=== PATIENT | male | born 1940 | race Caucasian/White ===

== ENCOUNTER 2016-02-09 09:12 | Outpatient (CLI) | payer MEDICARE | END 2016-02-09 09:13 | disposition home or self-care (01) | DX: I48.0 Paroxysmal atrial fibrillation (principal) ==

== ENCOUNTER 2016-03-01 13:38 | Outpatient (CLI) | payer MEDICARE | END 2016-03-01 13:39 | disposition home or self-care (01) | DX: I48.0 Paroxysmal atrial fibrillation (principal) ==

== ENCOUNTER 2016-03-09 11:00 | Outpatient (CLI) | payer MEDICARE | END 2016-03-09 11:01 | disposition home or self-care (01) | DX: I48.0 Paroxysmal atrial fibrillation (principal) ==

== ENCOUNTER 2016-03-29 10:53 | Outpatient (CLI) | payer MEDICARE | END 2016-03-29 10:54 | disposition home or self-care (01) | DX: I48.0 Paroxysmal atrial fibrillation (principal) ==

== ENCOUNTER 2016-04-21 13:14 | Outpatient (CLI) | payer MEDICARE | END 2016-04-21 13:15 | disposition home or self-care (01) | DX: I48.0 Paroxysmal atrial fibrillation (principal) ==

== ENCOUNTER 2016-05-03 11:28 | Outpatient (CLI) | payer MEDICARE | END 2016-05-03 11:29 | DX: I48.0 Paroxysmal atrial fibrillation (principal) ==

== ENCOUNTER 2016-05-24 13:24 | Outpatient (CLI) | payer MEDICARE | END 2016-05-24 13:25 | disposition home or self-care (01) | DX: I48.0 Paroxysmal atrial fibrillation (principal) ==

== ENCOUNTER 2016-06-21 13:30 | Outpatient (CLI) | payer MEDICARE | END 2016-06-21 13:31 | disposition home or self-care (01) | DX: I48.0 Paroxysmal atrial fibrillation (principal) ==

== ENCOUNTER 2016-07-12 10:58 | Outpatient (CLI) | payer MEDICARE | END 2016-07-12 10:59 | disposition home or self-care (01) | LOC: LAB.F 10:58 | PROVIDERS: ATTEND Internal Medicine Cardiovascular Disease | DX: I48.0 Paroxysmal atrial fibrillation (principal) | CPT/HCPCS: 85610 ==

== ENCOUNTER 2016-08-09 13:40 | Outpatient (CLI) | payer MEDICARE | END 2016-08-09 13:41 | disposition home or self-care (01) | LOC: LAB.F 13:40 | PROVIDERS: ATTEND Internal Medicine Cardiovascular Disease | DX: I48.0 Paroxysmal atrial fibrillation (principal) | CPT/HCPCS: 85610 ==

== ENCOUNTER 2016-08-23 10:49 | Outpatient (CLI) | payer MEDICARE | END 2016-08-23 10:50 | disposition home or self-care (01) | LOC: LAB.F 10:49 | PROVIDERS: ATTEND Internal Medicine Cardiovascular Disease | DX: I48.0 Paroxysmal atrial fibrillation (principal) | CPT/HCPCS: 85610 ==

== ENCOUNTER 2016-09-13 11:21 | Outpatient (CLI) | payer MEDICARE | END 2016-09-13 11:22 | disposition home or self-care (01) | LOC: LAB.F 11:21 | PROVIDERS: ATTEND Internal Medicine Cardiovascular Disease | DX: I48.0 Paroxysmal atrial fibrillation (principal) | CPT/HCPCS: 85610 ==

== ENCOUNTER 2016-09-20 14:06 | Outpatient (CLI) | payer MEDICARE | END 2016-09-20 14:07 | disposition home or self-care (01) | LOC: LAB.F 14:06 | PROVIDERS: ATTEND Internal Medicine Cardiovascular Disease | DX: I48.0 Paroxysmal atrial fibrillation (principal) | CPT/HCPCS: 85610 ==

== ENCOUNTER 2016-09-27 13:02 | Outpatient (CLI) | payer MEDICARE | END 2016-09-27 13:03 | disposition home or self-care (01) | LOC: LAB.F 13:02 | PROVIDERS: ATTEND Internal Medicine Cardiovascular Disease | DX: I48.0 Paroxysmal atrial fibrillation (principal) | CPT/HCPCS: 85610 ==

== ENCOUNTER 2016-10-11 13:31 | Outpatient (CLI) | payer MEDICARE | END 2016-10-11 13:32 | disposition home or self-care (01) | LOC: LAB.F 13:31 | PROVIDERS: ATTEND Internal Medicine Cardiovascular Disease | DX: I48.0 Paroxysmal atrial fibrillation (principal) | CPT/HCPCS: 85610 ==

== ENCOUNTER 2016-10-25 14:05 | Outpatient (CLI) | payer MEDICARE | END 2016-10-25 14:06 | disposition home or self-care (01) | LOC: LAB.F 14:05 | PROVIDERS: ATTEND Internal Medicine Cardiovascular Disease | DX: I48.0 Paroxysmal atrial fibrillation (principal) | CPT/HCPCS: 85610 ==

== ENCOUNTER 2016-11-15 14:33 | Outpatient (CLI) | payer MEDICARE | END 2016-11-15 14:34 | disposition home or self-care (01) | LOC: LAB.F 14:33 | PROVIDERS: ATTEND Internal Medicine Cardiovascular Disease | DX: I48.0 Paroxysmal atrial fibrillation (principal) | CPT/HCPCS: 85610 ==

== ENCOUNTER 2017-01-17 13:02 | Outpatient (CLI) | payer MEDICARE | END 2017-01-17 13:03 | disposition home or self-care (01) | LOC: LAB.F 13:02 | PROVIDERS: ATTEND Internal Medicine Cardiovascular Disease | DX: I48.0 Paroxysmal atrial fibrillation (principal) | CPT/HCPCS: 85610 ==

== ENCOUNTER 2017-02-21 11:23 | Outpatient (CLI) | payer MEDICARE | END 2017-02-21 11:24 | disposition home or self-care (01) | LOC: LAB.F 11:23 | PROVIDERS: ATTEND Internal Medicine Cardiovascular Disease | DX: I48.0 Paroxysmal atrial fibrillation (principal) | CPT/HCPCS: 85610 ==

== ENCOUNTER 2017-03-28 10:59 | Outpatient (CLI) | payer MEDICARE | END 2017-03-28 11:00 | disposition home or self-care (01) | LOC: LAB.F 10:59 | PROVIDERS: ATTEND Internal Medicine Cardiovascular Disease | DX: I48.0 Paroxysmal atrial fibrillation (principal) | CPT/HCPCS: 85610 ==

== ENCOUNTER 2017-05-10 11:19 | Outpatient (CLI) | payer MEDICARE | END 2017-05-10 11:20 | disposition home or self-care (01) | LOC: LAB.F 11:19 | PROVIDERS: ATTEND Internal Medicine Cardiovascular Disease | DX: I48.0 Paroxysmal atrial fibrillation (principal) | CPT/HCPCS: 85610 ==

== ENCOUNTER 2017-06-20 14:23 | Outpatient (CLI) | payer MEDICARE | END 2017-06-20 14:24 | disposition home or self-care (01) | LOC: LAB.F 14:23 | PROVIDERS: ATTEND Internal Medicine Cardiovascular Disease | DX: I48.2 Chronic atrial fibrillation (principal) | CPT/HCPCS: 85610 ==

== ENCOUNTER 2017-08-01 14:36 | Outpatient (CLI) | payer MEDICARE | END 2017-08-01 14:37 | disposition home or self-care (01) | LOC: LAB.F 14:36 | PROVIDERS: ATTEND Internal Medicine Cardiovascular Disease | DX: I48.2 Chronic atrial fibrillation (principal) | CPT/HCPCS: 85610 ==

== ENCOUNTER 2017-08-22 14:48 | Outpatient (CLI) | payer MEDICARE | END 2017-08-22 14:49 | disposition home or self-care (01) | LOC: LAB.F 14:48 | PROVIDERS: ATTEND Internal Medicine Cardiovascular Disease | DX: I48.2 Chronic atrial fibrillation (principal) | CPT/HCPCS: 85610 ==

== ENCOUNTER 2017-10-03 13:29 | Outpatient (CLI) | payer MEDICARE | END 2017-10-03 13:30 | disposition home or self-care (01) | LOC: LAB.F 13:29 | PROVIDERS: ATTEND Internal Medicine Cardiovascular Disease | DX: I48.2 Chronic atrial fibrillation (principal) | CPT/HCPCS: 85610 ==

== ENCOUNTER 2017-10-24 10:01 | Outpatient (CLI) | payer MEDICARE | END 2017-10-24 10:02 | disposition home or self-care (01) | LOC: LAB.F 10:01 | PROVIDERS: ATTEND Internal Medicine Cardiovascular Disease | DX: I48.2 Chronic atrial fibrillation (principal) | CPT/HCPCS: 85610 ==

== ENCOUNTER 2017-11-12 17:32 | Outpatient (CLI) | payer MEDICARE | END 2017-11-12 17:33 | disposition short-term general hospital (02) | LOC: EMS 17:32 | PROVIDERS: ATTEND Surgery | DX: S09.90XA Unspecified injury of head, initial encounter (principal); R40.20 Unspecified coma; W10.9XXA Fall (on) (from) unspecified stairs and steps, initial encounter; Y92.008 Other place in unspecified non-institutional (private) residence as the place of occurrence of the external cause; Z79.01 Long term (current) use of anticoagulants | CPT/HCPCS: A0425; A0427 ==

== ENCOUNTER 2017-11-12 17:56 | Emergency (ER) | payer MEDICARE ==
[2017-11-12] MEDS ORDERED: PROTHROMBIN COMPLEX CONC 500 UNIT VIAL IVP STA (18:05)
[2017-11-12] MEDS ORDERED: PHYTONADIONE 10 MG/ML AMP IVP STA (18:05)
--- NOTE | 2017-11-12 18:07 | ED Physician Documentation ---
PD HPI Fall - Stated complaint Stated Complaint: FALL - History obtained from History obtained from: EMS - History of Present Illness Mechanism of injury: Unknown (Fell down about 8 stairs. He is on Coumadin. He was obtunded on scene and posturing. Intubated with a Toño tube prior to arrival.) Review of Systems Unable to obtain: Intubated PD PAST MEDICAL HISTORY - Past Medical History Cardiovascular: Atrial fibrillation - Past Surgical History Past Surgical History: No General: Cholecystectomy, Appendectomy - Present Medications Home Medications: Ambulatory Orders Medication Instructions Recorded Confirmed Citalopram [CeleXA] 5 mg PO DAILY 01/19/15 01/19/15 Diltiazem HCl [Diltiazem ER] 180 mg PO DAILY 01/19/15 01/19/15 RX: Finasteride 5 mg PO DAILY 01/19/15 01/19/15 RX: Melatonin 3 mg PO DAILY 01/19/15 01/19/15 Tamsulosin [Flomax] 0.4 mg PO DAILY 01/19/15 01/19/15 Warfarin [Coumadin] 6 mg PO DAILY 01/19/15 01/19/15 RX: HYDROcod/ACETAM 5/325 [[place] 1 - 2 ea PO Q6H PRN #15 tablet 01/31/16 5/325] RX: Memantine [Namenda] 10 mg 01/31/16 - Allergies Allergies/Adverse Reactions: Allergies Allergy/AdvReac Type Severity Reaction Status Date / Time No Known Drug Allergies Allergy Verified 01/31/16 17:23 - Social History Does the pt smoke?: No Does the pt drink ETOH?: No Does the pt have substance abuse?: No - Immunizations Immunizations are current?: Yes - POLST Patient has POLST: No PD ED PE NORMAL - Vitals Vital signs reviewed: Yes - General General: Other (He is intubated with fixed and dilated pupils and no response to painful stimulus.) - HEENT HEENT: Other (Fixed and dilated) - Neck Neck: Other (C-collar maintained) - Cardiac Cardiac: RRR, No murmur - Respiratory Respiratory: Other (Rhonchorous, intubated) - Abdomen Abdomen: Non tender - Back Back: No CVA TTP, No spinal TTP - Extremities Extremities: No edema, No calf tenderness / cord - Neuro Eye Opening: None Motor: None Verbal: None GCS Score: 3 Results - Vitals Vitals: Oxygen O2 Source Room air Procedures - Intubation Provider: Emergency physician Medications: Etomidate (20mg), Fentanyl (100mcg) Blade: Michael (4) Tube: Size-enter number (7.0 (initially tried 8.0 and glidescope which was too lg.), Cuffed Confirmation: Direct visualization, Bilateral breath sounds, No abdominal breath sound, End tidal CO2 Complications: No compications PD MEDICAL DECISION MAKING - ED course ED course: 77-year-old gentleman with fall downstairs on warfarin. Presents obtunded with a GCS of 3, sent directly to CT scan and [facility] was contacted. Accepted by Dr. Barton at [facility], cobras were completed, gave verbal consent by phone, no written consent for transfer was obtainable but consent to a level 1 trauma center was a necessity.. Noted to have massive intraparenchymal hemorrhage. Given K Centra, 2500 units IV, mannitol but then started to become hypotensive so was given hypertonic saline as well. He came in with a Toño tube in place and this was replaced with an endotracheal tube (Note the CT findings, this was after the CTs were done). was updated by phone and she is on her way to [facility]. - Critical Care Time(min): 45 Time Includes: Direct patient care, Review records, Reassess patient, Document care, Coordinate care, Medical consult, Family consult for tx [facility] Data interpretation: Labs Procedures included in critical care time: Peripheral IV Procedures excluded from critical care time: Intubation - Sepsis Event Vital Signs: Oxygen O2 Source Room air Departure - Departure Disposition: 02 Transfer Acute Care Hosp Clinical Impression: Subarachnoid bleed, Subdural bleeding, Fall down stairs, On Coumadin for atrial fibrillation, Respiratory failure, Coma Condition: Critical Discharge Date/Time: 11/12/17 18:56
[2017-11-12] MEDS ORDERED: MANNITOL 20% 500 ML IV ONE (18:11)
[2017-11-12] MEDS ORDERED: fentaNYL 100 MCG/2 ML VIAL ONE (18:32)
[2017-11-12] MEDS ORDERED: IOPAMIDOL-300 100 ML VIAL ONE (18:39)
[2017-11-12 18:47] LABS: BASOPHILS % (AUTO) 0.2 %; EOSINOPHILS # (AUTO) 0.1 10^3/uL (0.0-0.7); EOSINOPHILS % (AUTO) 1.6 %; HGB - HEMOGLOBIN 13.4 g/dL (14.0-18.0); LYMPHOCYTES # (AUTO) 2.2 10^3/uL (1.5-3.5); LYMPHOCYTES % (AUTO) 33.3 %; MEAN CORPUSCULAR HGB CONC 33.5 g/dL (32.0-36.0); MEAN CORPUSCULAR VOLUME 98.5 fL (80.0-94.0); MEAN PLATELET VOLUME 8.9 fL (7.4-11.4); MONOCYTES # (AUTO) 0.3 10^3/uL (0.0-1.0); MONOCYTES % (AUTO) 5.2 %; NEUTROPHILS # (AUTO) 3.9 10^3/uL (1.5-6.6); NEUTROPHILS % (AUTO) 59.7 %; PLT - PLATELET COUNT 92 10^3/uL (130-450); RED BLOOD COUNT 4.08 10^6/uL (4.70-6.10); RED CELL DISTRIBUTION WIDTH 13.9 % (12.0-15.0); WHITE BLOOD COUNT 6.6 x10^3/uL (4.8-10.8)
--- NOTE | 2017-11-12 18:51 | CT Report ---
Reason: fall, obtunded Procedure Date: 11/12/2017 Accession Number: [id number] / [id number] Procedure: CT - Head W/O CPT Code: FULL RESULT: EXAM: CT HEAD EXAM DATE: 11/12/2017 06:25 PM. CLINICAL HISTORY: Fall, obtunded. COMPARISON: 01/31/2016. TECHNIQUE: Multiaxial CT images were obtained from the foramen magnum to the vertex. Reformats: Sagittal and coronal. IV contrast: None. In accordance with CT protocol optimization, one or more of the following dose reduction techniques were utilized for this exam: automated exposure control, adjustment of mA and/or KV based on patient size, or use of iterative reconstructive technique. FINDINGS: Parenchyma: Parenchymal hemorrhage in the left basal ganglia measuring about 11 mm. Second parenchymal hemorrhage in medial right cerebellum measuring about 15 mm. Midline shift from [id number] measuring 12.6 mm. Adequate sainz-white differentiation. Diffuse chronic microangiopathic white matter changes. Extraaxial Spaces: Large left subdural hematoma measuring 16.1 mm and extending over the left hemisphere. A small amount of hemorrhage along the medial surface of the right temporal lobe. Subarachnoid blood tracking along spaces both anterior and posterior. Ventricles: Blood in the fourth ventricle, but none seen in the lateral ventricles. Ventricles appear effaced compared to previous exam. Sinuses and orbits: Prominent air-fluid levels in the sphenoid sinus and posterior ethmoid air cells. Bones: Long segment nondepressed fracture of the occipital bone right of midline and extending to the foramen magnum. Several bubbles of air are seen in the temporal fossae and near the sphenoid sinus, implying basilar skull fracture, not well seen. Other: Superficial soft tissue swelling posteriorly with small amount of subcutaneous emphysema. IMPRESSION: 1. Occipital skull fracture right of midline involving the foramen magnum with probable associated basilar skull fracture anteriorly. 2. Large left subdural hematoma resulting in midline shift from left to right measuring about 12.6 mm. 3. Associated subarachnoid hemorrhage and small parenchymal hemorrhages in the left basal ganglia and right medial cerebellum. RADIA The above findings were discussed with Clyde Dickinson by Dr. Eduardo Gray at 18:50 hrs on 11/12/17.
--- NOTE | 2017-11-12 18:53 | CT Report ---
Reason: fall, obtunded Procedure Date: 11/12/2017 Accession Number: [id number] / [id number] Procedure: CT - Cervical Spine W/O CPT Code: FULL RESULT: EXAM: CT CERVICAL SPINE WITHOUT CONTRAST DATE: 11/12/2017 06:25 PM. HISTORY: Fall, obtunded. COMPARISONS: 01/31/2016. TECHNIQUE: Thin-section axial images were acquired of the cervical spine without contrast. Post-processing: Coronal and sagittal reformats. Other: None. In accordance with CT protocol optimization, one or more of the following dose reduction techniques were utilized for this exam: automated exposure control, adjustment of mA and/or KV based on patient size, or use of iterative reconstructive technique. FINDINGS: Alignment: Straightening with lordosis at the C4 level. No significant listhesis. No scoliosis. Bones: See separate report for occipital fracture. No cervical fracture or other bone lesion. Interspace Levels/Facets: Marked disk space narrowing at C4-C5, C5-C6, and C6-C7 with marginal osteophytes, similar to previous study. Other disk spaces preserved. Generalized degenerative changes. Musculature: Unremarkable. Other: No prevertebral soft tissue swelling. Endotracheal and oral airway tube is in place. The lung apices are clear. IMPRESSION: Chronic findings; no acute cervical spine disease. RADIA
[2017-11-12 18:55] LABS: INR 3.5 (0.8-1.2); PT - PROTHROMBIN TIME 37.3 secs (9.9-12.6)
[2017-11-12] MEDS ORDERED: IOPAMIDOL-300 100 ML VIAL IVP ONE (18:59)
--- NOTE | 2017-11-12 19:00 | CONSULTATION NOTE ---
Referring Provider Name of Referring Provider:: Dr. Eleuterio Dickinson Consult Date: 11/12/17 Chief Complaint - Chief Complaint Chief Complaint: Trauma code History of Present Illness - Admitted From Admitted From:: Not admitted - History Obtained From Records Reviewed: No History obtained from: Dr. Dickinson and paramedics Exam Limitations: Patient is fixed and dilated, intubated, responsive only to pain - History of Present Illness HPI Comment/Other: Called emergently to evaluate this 77-year-old male for a fall down the stairs with concomitant blow to the back of his head. Importantly, the patient is anticoagulated with warfarin for chronic atrial fibrillation. Patient is intubated in the field with blood and fluid draining from his ears. Obviously unable to give a history. History obtained from the paramedics as well as Dr. Dickinson who states that the patient fell down a significant flight of stairs. While waiting for the helicopter to arrive the patient was red scanned. The scan shows a basilar skull fracture and suspected as well as an associated subdural and arachnoid hemorrhage. There is shift of the midline. Additionally the quick read of the cervical spine shows no injury. The quick read of the thoracic CT scan shows a shift of the trachea to the patient's right there is likely result of a very large stomach that needs to be decompressed. Review of his abdominal x-ray reveals no acute trauma other than the fact that the patient has a very large stomach filled with air. Patient was initially hyperventilated, and given K Centra as well as vitamin K and mannitol. The helicopter crew had arrived. The airway was secured with a standard endotracheal tube and a nasogastric tube was placed to decompress the stomach. There was no time to place a [place] as the weather was worsening and the helicopter crew was worried about the ability to fly. Due to some transient hypotension the mannitol was stopped and he was started on hypertonic saline. Importantly during the intubation the patient did have upgoing Babinskis on both the right and left leg with a more vigorous response on the patient's right leg. History - Past Medical History Cardiovascular: reports: Atrial fibrillation Respiratory: reports: None Neuro: reports: None Endocrine/Autoimmune: reports: None GI: reports: None [employer] D[employer]: reports: None : reports: None HEENT: reports: None Psych: reports: None Musculoskeletal: reports: None Derm: reports: None MRSA Hx?: No - Past Surgical History General: reports: Cholecystectomy, Appendectomy - POLST Patient has POLST: No Meds/Allgy - Home Medications Home Medications: Ambulatory Orders Medication Instructions Recorded Confirmed Citalopram [CeleXA] 5 mg PO DAILY 01/19/15 01/19/15 Diltiazem HCl [Diltiazem ER] 180 mg PO DAILY 01/19/15 01/19/15 Finasteride 5 mg PO DAILY 01/19/15 01/19/15 Melatonin 3 mg PO DAILY 01/19/15 01/19/15 Tamsulosin [Flomax] 0.4 mg PO DAILY 01/19/15 01/19/15 Warfarin [Coumadin] 6 mg PO DAILY 01/19/15 01/19/15 HYDROcod/ACETAM 5/325 [[place] 5/325] 1 - 2 ea PO Q6H PRN #15 tablet 01/31/16 Memantine [Namenda] 10 mg 01/31/16 - Allergies Allergies/Adverse Reactions: Allergies Allergy/AdvReac Type Severity Reaction Status Date / Time No Known Drug Allergies Allergy Verified 01/31/16 17:23 Review of Systems - Other Findings Other Findings: Not done due to the emergent nature of this patient's injuries. Exam - Vital Signs Reviewed Vital Signs: Yes - Physical Exam General Appearance: positive: Other (Intubated, with blood and fluid draining from his ears.) Eyes Bilateral: positive: Other (Fixed and dilated.) ENT: positive: Other (Again blood and fluid draining from his ears bilaterally with the right worse than the left.) Neck: positive: Tracheal deviation (Initially to the patient's right but then with reintubation and decompression of the stomach this went to the midline.) Respiratory: positive: Other (Initially decreased breath sounds on the patient's left and then with reintubation more equal breath sounds bilaterally anterolaterally.) Cardiovascular: positive: Other (Irregular, initially tachycardic with some episodes of bradycardia as time went on.) Abdomen: positive: Abnml bowel sounds (Decreased.) Skin: positive: Pallor Extremities: positive: Nml appearance Neurologic/Psychiatric: positive: Other (Intubated, decreased responsiveness only to pain.) Conclusion/Plan - Diagnosis Diagnosis: Basilar skull fracture with intracranial bleed including subdural and arachnoid with midline shift. - Plan Plan: Emergent transfer to [facility] for neurosurgical evaluation and care. Review of the patient's radiographic findings combined with the patient's age and anticoagulation portend a poor prognosis. No other emergent surgical issues. - Lab Results Lab results reviewed: Yes - Diagnostic Imaging Results Diagnostic Imaging Results: positive: Prelim report reviewed, Final report reviewed, Read independently
[2017-11-12 19:05] LABS: ALBUMIN/GLOBULIN RATIO 1.2 (1.0-2.2); ALKALINE PHOSPHATASE 58 IU/L (42-121); ALT ALANINE AMINOTRANSFERASE 27 IU/L (10-60); AST ASPARTATE AMINOTRANSFERASE 42 IU/L (10-42); BILIRUBIN,TOTAL 0.7 mg/dL (0.2-1.0); BUN - BLOOD UREA NITROGEN 29 mg/dL (6-20); CALCIUM 7.8 mg/dL (8.5-10.3); CARBON DIOXIDE - CO2 22 mmol/L (21-32); CHLORIDE 107 mmol/L (101-111); CREATININE 1.1 mg/dL (0.6-1.2); GFR - MDRD 65 (>89); GLUCOSE 122 mg/dL (70-100); LIPASE 37 U/L (22-51); SODIUM 138 mmol/L (135-145); TOTAL PROTEIN 5.6 g/dL (6.7-8.2)
--- NOTE | 2017-11-12 19:05 | CT Report ---
Reason: fall, obtunded Procedure Date: 11/12/2017 Accession Number: [id number] / [id number] Procedure: CT - Thoracic Spine W/O CPT Code: FULL RESULT: EXAM: CT THORACIC SPINE WITHOUT CONTRAST EXAM DATE: 11/12/2017 06:36 PM. CLINICAL HISTORY: Fall, obtunded. COMPARISONS: None. TECHNIQUE: Thin-section axial, coronal and sagittal reconstructions, reconstructed from the chest CT with contrast. In accordance with CT protocol optimization, one or more of the following dose reduction techniques were utilized for this exam: automated exposure control, adjustment of mA and/or KV based on patient size, or use of iterative reconstructive technique. FINDINGS: Alignment: No scoliosis or spondylolisthesis. Bones: No evidence for acute fracture in the thoracic spine. Mild to moderate degenerative disease in the thoracic spine more moderate in the lower thoracic spine. Other: See the separate chest CT report from the same date. IMPRESSION: No evidence for acute fracture in the thoracic spine. See above. RADIA
[2017-11-12] MEDS ORDERED: fentaNYL 100 MCG/2 ML VIAL IVP STA (19:09)
--- NOTE | 2017-11-12 19:10 | CT Report ---
Reason: fall, obtunded Procedure Date: 11/12/2017 Accession Number: [id number] / [id number] Procedure: CT - Lumbar Spine W/O CPT Code: FULL RESULT: EXAM: CT LUMBAR SPINE WITHOUT CONTRAST EXAM DATE: 11/12/2017 06:36 PM. CLINICAL HISTORY: Fall, obtunded. COMPARISONS: None. TECHNIQUE: Thin-section axial, sagittal and coronal images reconstructed from the abdomen and pelvis CT with contrast. In accordance with CT protocol optimization, one or more of the following dose reduction techniques were utilized for this exam: automated exposure control, adjustment of mA and/or KV based on patient size, or use of iterative reconstructive technique. FINDINGS: Mild retrolisthesis diffusely in the lumbar spine, most likely degenerative. Moderate to severe diffuse degenerative disk disease in the thoracic spine. Moderate diffuse facet arthropathy. Moderate bilateral sacroiliac degenerative joint disease. Bones are demineralized. No evidence for acute fracture. Chronic appearing left L4 pars defect. See the abdomen and pelvis CT findings from the same date. IMPRESSION: 1. No evidence for acute fracture in the lumbar spine. Chronic appearing left L4 pars defect. See above. RADIA
--- NOTE | 2017-11-12 19:17 | CT Report ---
Reason: fall, obtunded Procedure Date: 11/12/2017 Accession Number: [id number] / [id number] Procedure: CT - Chest W/ CPT Code: FULL RESULT: EXAM: CT CHEST EXAM DATE: 11/12/2017 06:25 PM. CLINICAL HISTORY: Fall, obtunded. COMPARISONS: None. TECHNIQUE: Routine helical CT imaging was performed through the chest. IV contrast: 100 cc Isovue-300. Reconstructions: Coronal and sagittal. In accordance with CT protocol optimization, one or more of the following dose reduction techniques were utilized for this exam: automated exposure control, adjustment of mA and/or KV based on patient size, or use of iterative reconstructive technique. FINDINGS: Lungs/Pleura: Prominent elevation of left hemidiaphragm with distended gas filled stomach below the diaphragm. Bibasilar atelectasis with dependent edema. No consolidation, definite effusion, or pneumothorax. Mediastinum: Overall heart size within normal limits. Mediastinum displaced to the right by elevated hemidiaphragm and a distended stomach. Dilated main pulmonary artery measuring 3.5 cm indicating pulmonary artery hypertension. At least 2 vessel coronary artery calcification. No lymphadenopathy. The endotracheal tube appears to be at the level of the epiglottis with mild air-filled distention of the esophagus. Bones: Unremarkable. Visualized Abdomen: See separate report. Other: None. IMPRESSION: 1. ETT malposition. 2. Marked distention of the stomach; elevated left hemidiaphragm with displacement of the mediastinum to the right. 3. Bibasilar atelectasis with dependent edema. RADIA The above findings were discussed with Clyde Dickinson by Dr. Eduardo Gray at 19:16 hrs on 11/12/17.
--- NOTE | 2017-11-12 19:18 | CT Report ---
Reason: fall, obtunded Procedure Date: 11/12/2017 Accession Number: [id number] / [id number] Procedure: CT - Abdomen/Pelvis W/ CPT Code: FULL RESULT: EXAM: CT ABDOMEN AND PELVIS EXAM DATE: 11/12/2017 06:25 PM. CLINICAL HISTORY: Fall, obtunded. COMPARISONS: 01/19/2015. TECHNIQUE: Routine helical CT imaging was performed through the abdomen and pelvis. IV contrast: ISOVUE 300 100mL. Enteric contrast: No. Reconstructions: Coronal and sagittal. In accordance with CT protocol optimization, one or more of the following dose reduction techniques were utilized for this exam: automated exposure control, adjustment of mA and/or KV based on patient size, or use of iterative reconstructive technique. FINDINGS: Lung Bases: See separate report. Elevation of left hemidiaphragm and a lesser degree of mediastinal displacement were present on previous study. Liver: Normal. No masses. Gallbladder/Bile Ducts: Unremarkable. Spleen: Small calcified granulomata. Otherwise unremarkable. Pancreas: Normal. Adrenal Glands: Normal. Kidneys: Normal. No masses or hydronephrosis. Peritoneal Cavity/Bowel: Prominently distended stomach, increased since previous study. No free fluid, free air or adenopathy. No masses or acute inflammatory process. Unremarkable region of appendix. Pelvic Organs: Normal. The bladder and visualized pelvic organs are within normal limits. Vasculature: No aneurysms or other significant abnormality. Bones: Degenerative changes. Other: None. IMPRESSION: 1. Chronic elevation of left hemidiaphragm; increased air-filled gastric distention. 2. Other chronic or incidental findings. RADIA
[2017-11-12 19:20] VITALS: BP 83/40
--- NOTE | 2017-11-12 19:24 | XRAY Report ---
Reason: post intubation Procedure Date: 11/12/2017 Accession Number: [id number] / [id number] Procedure: XR - Chest 1 View X-Ray CPT Code: 56766 FULL RESULT: EXAM: CHEST RADIOGRAPHY EXAM DATE: 11/12/2017 06:59 PM. CLINICAL HISTORY: Post intubation. Post nasogastric tube placement. COMPARISON: CHEST 2 VIEW PA/LAT 01/19/2015 1:40 PM ABDOMEN/PELVIS W/ 11/12/2017 6:17 PM. TECHNIQUE: 1 view. FINDINGS AND IMPRESSION: Lungs/Pleura: Mild diffuse bilateral airspace disease. Elevated left hemidiaphragm with gas distended stomach. Right lung base not imaged. No pleural effusion or pneumothorax seen. Mediastinum: Within exam limitations, the cardiomediastinal contour is normal. Other: Tip of the endotracheal tube is located 9 cm above the melsisa at the level of the clavicles. The nasogastric tube takes a tortuous course extending to the left side of the mediastinum extending down into the abdomen with the tip not imaged. An abdomen x-ray could further evaluate. RADIA
== END 2017-11-12 18:56 | disposition short-term general hospital (02) ==
LOC: ED 17:56
DX: S02.119A Unspecified fracture of occiput, initial encounter for closed fracture (principal); S06.6X9A Traumatic subarachnoid hemorrhage with loss of consciousness of unspecified duration, initial encounter; S06.5X9A Traumatic subdural hemorrhage with loss of consciousness of unspecified duration, initial encounter; R40.2432 Glasgow coma scale score 3-8, at arrival to emergency department; W10.9XXA Fall (on) (from) unspecified stairs and steps, initial encounter; J96.90 Respiratory failure, unspecified, unspecified whether with hypoxia or hypercapnia; I95.9 Hypotension, unspecified; I48.91 Unspecified atrial fibrillation; Z79.01 Long term (current) use of anticoagulants
CPT/HCPCS: 31500; 36415; 70450; 71045; 71260; 72125; 72128; 72131; 74177; 80053; 83690; 85025; 85610; 96374; 96375; 99291; C9132; Q9967; 80320; 99284